=== PATIENT | female | born 1965 | race Caucasian/White ===

== ENCOUNTER → 2019-11-13 | Emergency (ER) | payer OTHER ==
[~2019-11-13] MED LIST: ISOVUE-370 76% 100ML VIAL As Ordered ONE; MORPHINE 4 MG/ML 1ML VIAL/SYRINGE (J2270) As Ordered ONE; MORPHINE 4 MG/ML 1ML VIAL/SYRINGE (J2270) ONE; ONDANSETRON 4MG/2ML VIAL As Ordered ONE; ONDANSETRON 4MG/2ML VIAL ONE; fentaNYL 100 MCG/2 ML INJECTION (J3010) As Ordered ONE; fentaNYL 100 MCG/2 ML INJECTION (J3010) ONE
--- NOTE | 2019-12-10 07:46 | ER ---
DATE: 11/13/2019 CONSULT REQUESTED BY: Emergency room. REASON FOR CONSULTATION: Consult regarding blunt trauma to the kidney. HISTORY OF PRESENT ILLNESS: Ms. Hernandez is a 54-year-old female with a history of fall roughly about 12 steps on or about 4 p.m. Today complaining of left- sided pain, slight difficulty of taking deep breath, back pain. Also in the emergency room with hematuria. Otherwise, she seems amicably stable. During her stay in the emergency room, she was up in the emergency room and found to have blunt kidney trauma. Thus, I was asked to consult on the patient. PAST MEDICAL HISTORY: Consist of mild hypertension, otherwise denies any chronic medical problems. PAST SURGICAL HISTORY: Includes prior laparoscopies as workup for fertility, prior appendectomy. HOME MEDICATIONS: Include propanolol, turmeric. PHYSICAL EXAMINATION: She has been hemodynamically stable in the emergency room. Blood pressure in the monitor shows blood pressure 152/53, heart rate is 98. The patient seems mildly uncomfortably lying flat on the bed. Decreased movement secondary to the discomfort. No head or neck injuries noted. Neck is supple, nontender. No midline step-off. No chest wall injuries. Slight decrease in respiratory effort secondary to the pain and discomfort. No tenderness over the chest wall. No visible bruising. Mildly tender over the left flank area. Abdomen otherwise is flat, soft and non-distended. No extremity trauma noted. She is awake, alert and oriented. Moves all extremities normally. LABORATORY DATA: Labs consist of a complete blood count (CBC) showing WBC of 11.0, hemoglobin of 13.1, hematocrit 37.2, platelets 142. Metabolic panel shows normal electrolytes, BUN of 15, creatinine is 0.9. Liver function tests (LFTs) are normal. IMAGING: She had a CT of chest, abdomen and pelvis performed. Official readings not available yet. I reviewed the CT. She looks to have blunt trauma to the left kidney with surrounding either hematoma or urine. This is a grade 3, possibly a grade 4 with involvement of the collecting system on the left side. IMPRESSION/PLAN: Grade 3 to grade 4 blunt kidney trauma on the left side resulting from a fall. I discussed this with on-call urologist and he and I agreed that the probably most expeditious plan for her is to transfer her to a higher level of care especially with the concern of possible involvement of collecting system. MINDY
[2019-12-27 15:35] LABS: BASO % 0.3 % (0.0-1.0); EOS # 0.1 10^3/uL (0.0-0.5); EOS % 1.1 % (0.0-3.0); HEMATOCRIT 37.2 % (36.0-47.0); HEMOGLOBIN 13.1 g/dl (12.0-15.5); LYMPH # 2.7 10^3/uL (1.5-5.0); LYMPH % 24.2 % (24.0-44.0); MEAN CORPUSCULAR HGB CONC 35.2 g/dl (32.0-36.5); MEAN CORPUSCULAR VOLUME 93.7 fl (80.0-96.0); MONO # 0.6 10^3/uL (0.0-0.8); NEUTROPHILS # 7.6 10^3/uL (1.5-8.5); PLATELET COUNT, AUTOMATED 142 10^3/uL (150-450); RED BLOOD COUNT 3.97 10^6/uL (4.00-5.40)
[2019-12-27 20:44] LABS: APPEARANCE, URINE HAZY (CLEAR); BACTERIA, URINE AUTO NEGATIVE (NEGATIVE); BILIRUBIN, URINE AUTO NEGATIVE (NEGATIVE); BLOOD, URINE BLOOD 2+ (NEGATIVE); COLOR, URINE RED (YELLOW); GLUCOSE, URINE (UA) AUTO 1+ mg/dL (NEGATIVE); KETONE, URINE AUTO TRACE mg/dL (NEGATIVE); LEUKOCYTE ESTERASE, URINE AUTO NEGATIVE (NEGATIVE); NITRITE, URINE AUTO NEGATIVE (NEGATIVE); PROTEIN, URINE AUTO 2+ mg/dL (NEGATIVE); RBC, URINE AUTO TNTC /HPF (0-3); SPECIFIC GRAVITY URINE AUTO 1.019 (1.002-1.035); SQUAMOUS EPITHELIAL CELL UR AU 0 /HPF (0-6); UROBILINOGEN, URINE AUTO 0.2 mg/dL (0.0-2.0); WBC, URINE AUTO TNTC /HPF (0-3)
[2020-02-01 12:14] LABS: ALBUMIN 3.7 GM/DL (3.2-5.2); ALT/SGPT 80 U/L (12-78); BILIRUBIN,DIRECT 0.1 MG/DL (0.0-0.2); BILIRUBIN,TOTAL 0.6 MG/DL (0.2-1.0); BLOOD UREA NITROGEN 15 MG/DL (7-18); CALCIUM LEVEL 8.5 MG/DL (8.5-10.1); CARBON DIOXIDE LEVEL 26 MEQ/L (21-32); CHLORIDE LEVEL 106 MEQ/L (98-107); CPK CREATINE PHOSPHOKINASE 133 U/L (26-192); GLOMERULAR FILTRATION RATE > 60.0 (>51); GLUCOSE, FASTING 85 MG/DL (70-100); POTASSIUM SERUM 4.2 MEQ/L (3.5-5.1); SODIUM LEVEL 136 MEQ/L (136-145); TOTAL PROTEIN 6.8 GM/DL (6.4-8.2)
== END | disposition short-term general hospital (02) ==
LOC: M ED 20:34
DX: S37.032A Laceration of left kidney, unspecified degree, initial encounter (principal); N28.89 Other specified disorders of kidney and ureter; S22.32XA Fracture of one rib, left side, initial encounter for closed fracture; W11.XXXA Fall on and from ladder, initial encounter; Y92.814 Boat as the place of occurrence of the external cause; Y93.89 Activity, other specified; Y99.9 Unspecified external cause status; M16.11 Unilateral primary osteoarthritis, right hip; M25.751 Osteophyte, right hip; G25.0 Essential tremor; Z79.899 Other long term (current) drug therapy
CPT/HCPCS: 36415; 71260; 74177; 80047; 80048; 80076; 81001; 82550; 83690; 84702; 85025; 86850; 86900; 86901; 96361; 96374; 96375; 96376; 99285; J2270; J2405; J3010; Q9967